=== PATIENT | male | born 1995 | race Two or more races ===

== ENCOUNTER 2019-05-13 03:57 | Emergency (ER) | payer OTHER ==
[~2019-05-13] VITALS: Ht 172.7 cm; Wt 122.5 kg
[2019-05-13] MEDS ORDERED: DEXAMETHASONE SOD PHOSPHATE 10 MG/ML VIAL ONE (04:18)
--- NOTE | 2019-05-13 04:18 | NUR ---
BIB SELF WITH FRIEND AT BEDSIDE. AAOX4. BTREATHING SHALLOW AND REPORTS SOB. AMBULATORY. C/O COUGH WL PHLEGM X 2-3 DAYS. NOTED BILAT EXPIRTORY WHEEZING. O2 SAT AT TRIAGE 82%. PLAED ON O2 @2LPM VIA NC O2 SAT 92% PT IS ABLE TO TALK IN FULL SENTENCES. MD AT BEDSIDE. RT AT BEDSIDE. ORDERS RECEIVED
[2019-05-13] MEDS ORDERED: ALBUTEROL FS 2.5 MG/0.5 ML VIAL.NEB ONE ×2 (04:22→05:24)
[2019-05-13] MEDS ORDERED: IPRATROPIUM NEB FS 0.5 MG/2.5 ML AMPUL.NEB ONE (04:22)
--- NOTE | 2019-05-13 04:26 | NUR ---
PT REPORTS THAT HE IS FRON OUT OF [place], [place].
[2019-05-13] MEDS ORDERED: DEXAMETHASONE SOD PHOSPHATE 4 MG/ML VIAL IM ONE (04:30)
[2019-05-13] MEDS ORDERED: IPRATROPIUM NEB FS 0.5 MG/2.5 ML AMPUL.NEB NEB ONE (04:30)
[2019-05-13] MEDS ORDERED: ALBUTEROL FS 2.5 MG/0.5 ML VIAL.NEB NEB ONE ×2 (04:30→05:30)
[2019-05-13 05:53] VITALS: BP 139/92
--- NOTE | 2019-05-13 06:11 | NUR ---
Patient discharged to home in stable condition. Written and verbal after care instructions given. Patient verbalizes understanding of instruction. Pt ambulatory with a steady gait
== END 2019-05-13 06:12 | disposition home or self-care (01) ==
LOC: ER 03:59
DX: J98.01 Acute bronchospasm (principal)
CPT/HCPCS: 94640 ×2; 96372; 99284; J1100